=== PATIENT | male | born 1955 | race Caucasian/White ===

== ENCOUNTER 2019-12-07 23:44 | Emergency (ER) | payer MEDICARE, MEDICAID, SELFPAY ==
[2019-12-07 23:48] VITALS: BP 114/64; PULSE 87; RESP 20; TEMP 37.7; O2SAT 98; BMI 32.1
[2019-12-08 00:24] VITALS: BP 103/57; PULSE 81; RESP 20; O2SAT 96
--- NOTE | 2019-12-08 00:31 | HMH.EDFEV ---
ED Disposition Clinical Impression: UTI (urinary tract infection) Qualifiers: Urinary tract infection type: site unspecified Hematuria presence: without hematuria Qualified Code(s): N39.0 - Urinary tract infection, site not specified Disposition: Home, Self-Care Condition on Discharge: Good Instructions: DI for Urinary Tract Infection (UTI) Additional Instructions: fluids and call pcp today and use meds - Prescriptions: levoFLOXacin [Levaquin 500mg tab] 500 mg PO DAILY #7 tab Transmission Status: Pending to [facility] Referrals: Provider,Referral, [Primary Care Provider] - - Critical Care Critical Care Time: No Attestation: On 12/07/19, the high probability of a clinically significant, sudden or life threatening deterioration of the following system(s) required my full and direct attention, intervention and personal management. The time I documented below is in addition to time spent performing reported procedures but includes the following listed in this critical care notation. Medical Decision Making - Medical Records Medical records reviewed: Yes: I reviewed the patient's medical records. - Joseph Inquiry Pt receiving controlled substance: No Vital Signs: 12/07/19 23:48 12/08/19 00:24 12/08/19 01:30 Temperature 99.8 F H Temperature Source Oral Pulse Rate [Right] 87 81 83 Respiratory Rate 20 20 15 Blood Pressure [Right Arm] 114/64 103/57 L 107/61 L Blood Pressure Mean [Right Arm] 80 72 76 Blood Pressure Source [Right Arm] Automatic Cuff Automatic Cuff Blood Pressure Position [Right Arm] Sitting Sitting 02 Sat by Pulse Oximetry 98 96 97 Oxygen Delivery Method Room Air Room Air 12/08/19 02:30 12/08/19 03:30 Temperature Temperature Source Pulse Rate [Right] 85 89 Respiratory Rate 15 15 Blood Pressure [Right Arm] 111/58 L 113/66 Blood Pressure Mean [Right Arm] 75 81 Blood Pressure Source [Right Arm] Automatic Cuff Automatic Cuff Blood Pressure Position [Right Arm] Sitting Sitting 02 Sat by Pulse Oximetry 98 97 Oxygen Delivery Method Room Air Room Air - Lab Data Lab results reviewed: Yes: I reviewed the patient's lab results. Lab Results 12/08/19 00:35: WBC 7.2, RBC 3.31 L, Hgb 12.3 L, Hct 33.0 L, MCV 99.8 H, MCH 37.1 H, MCHC 37.2 H, RDW 14.1, Plt Count 180, MPV 8.3, Neut % (Auto) 85.7 H, Lymph % (Auto) 6.8 L, [place] % (Auto) 5.1, Eos % (Auto) 1.0, Baso % (Auto) 1.4, Neut # (Auto) 6.1, Lymph # (Auto) 0.5 L, [place] # (Auto) 0.4, Eos # (Auto) 0.1, Baso # (Auto) 0.1, Total Counted 100, Neutrophils % (Manual) 92 H, Lymphocytes % (Manual) 6 L, Monocytes % (Manual) 2, Platelet Estimate Normal, RBC Morphology Not Reportable, Stomatocytes 1+, ESR 84 H 12/08/19 00:35: Sodium 124 L, Potassium 3.1 L, Chloride 94 L, Carbon Dioxide 21 L, Anion Gap 12.1, BUN 16, Creatinine 1.30 H, Estimated Creat Clear 79, Estimated GFR 56 L, Est GFR ( Amer) 67, Glucose 115 H, Calcium 9.3, Total Bilirubin 4.6 H, AST 37, ALT 26, Alkaline Phosphatase 72, C-Reactive Protein 47.9 H, Total Protein 6.8, Albumin 3.5, Globulin 3.3 H, Albumin/Globulin Ratio 1.1 12/08/19 00:35: Influenza Type A Ag Negative, Influenza Type B Ag Negative, SARS-CoV-2 IgG Ab (Rapid) Negative, SARS-CoV-2 IgM Ab (Rapid) Negative 12/08/19 02:07: Urine Color Yellow, Urine Appearance Clear, Urine pH 6.0, Ur Specific [place] 1.015, Urine Protein Trace, Urine Glucose (UA) Negative, Urine Ketones Negative, Urine Blood 3+, Urine Nitrate Positive, Urine Bilirubin Negative, Urine Urobilinogen 0.2, Ur Leukocyte Esterase 2+ A, Urine RBC 10-20, Urine WBC 10-20, Urine Bacteria 2+ Result diagrams: 12/08/19 00:35 12/08/19 00:35 Orders (Tests/Meds): ED MEDICATIONS Generic Name Dose Route Start Last Admin Trade Name Freq PRN Reason Stop Dose Admin Sodium Chloride 1,000 mls @ 999 mls/hr 12/08/19 00:15 12/08/19 00:51 Sod Chlor 0.9% 1000ml Bag IV 12/08/19 01:15 999 mls/hr .Q1H1M AQUILES Administration Discontinued Medications Kiersten
[2019-12-08 00:50] LABS: Basophils # 0.1 K/mm3 (0-0.2); Basophils % 1.4 % (0.1-2.0); Eosinophils # 0.1 K/mm3 (0.0-0.4); Hemoglobin 12.3 g/dL (14.1-18.0); Lymphocytes # 0.5 K/mm3 (0.7-4.5); Lymphocytes % 6.8 % (10-50); Mean Corpuscular HGB Conc 37.2 g/dL (31.8-35.4); Mean Corpuscular Hemoglobin 37.1 pg (27.0-31.2); Mean Corpuscular Volume 99.8 fl (80-94); Mean Platelet Volume 8.3 fl (7.4-10.4); Monocytes # 0.4 K/mm3 (0.1-1.0); Monocytes % 5.1 % (1.7-9.3); Neutrophils # 6.1 K/mm3 (1.8-7.8); Neutrophils % 85.7 % (37.0-80.0); Platelet Count 180 K/mm3 (142-424); Red Blood Count 3.31 M/mm3 (4.60-6.20); Red Cell Distribution Width 14.1 % (11.5-17.5); White Blood Count 7.2 K/mm3 (4.8-10.8)
[2019-12-08 00:59] LABS: Alanine Aminotransferase 26 U/L (12-78); Albumin Level 3.5 g/dl (3.5-5.0); Albumin/Globulin Ratio 1.1 (1.1-1.8); Alkaline Phosphatase 72 U/L (38-126); Anion Gap 12.1 mEq/L (5-15); Aspartate Amino Transferase 37 U/L (17-59); Bilirubin,Total 4.6 mg/dl (0.2-1.3); Blood Urea Nitrogen 16 mg/dl (9-20); Calcium 9.3 mg/dl (8.4-10.2); Carbon Dioxide 21 mmol/L (22.0-30.0); Chloride 94 mmol/L (98-107); Creatinine Clearance Estimated 79 mL/min (50-200); Estimated Glomerular Filt Rate 56 ml/min (>60); GFR (African American) 67 ML/MIN (>60); Globulin 3.3 g/dL (1.3-3.2); Glucose 115 mg/dl (74-100); Potassium 3.1 mmoL/L (3.5-5.1); Sodium 124 mmol/L (136-145); Total Protein,Serum 6.8 g/dl (6.3-8.2)
[2019-12-08 01:00] LABS: MANUAL DIFFERENTIAL MANUAL DIFFERENTIAL (MANUAL DIFF)
[2019-12-08 01:05] LABS: C-Reactive Protein 47.9 mg/L (0-4)
[2019-12-08 01:22] LABS: Coronavirus 19 IgG Antibody Negative (Negative); Coronavirus 19 IgM Antibody Negative (Negative)
--- NOTE | 2019-12-08 01:24 | XR_ITS ---
PROCEDURE: XR CHEST 2V CLINICAL HISTORY: body aches COMPARISON: CXR CHEST(2 VIEWS-NOT PORTABLE) from 08/04/2014 CXR1 CHEST-PORTABLE from 02/04/2017 FINDINGS: Mild cardiomegaly without failure. Left hemidiaphragm is slightly elevated as before. The lungs are clear without infiltrates, suspicious nodules, or pleural effusions. Mild thoracic kyphosis not significantly changed IMPRESSION: No change with no acute finding. Mild cardiomegaly Dictated by: Isaac Kenyon MD 12/08/2019 08:39 Electronically signed by Isaac Kenyon MD in [place] 12/08/2019 08:39
[2019-12-08 01:26] LABS: Erythrocyte Sedimentation Rate 84 mm/hr (0-20)
[2019-12-08 01:29] LABS: Lymphocytes % 6 % (10-50); Monocytes % 2 % (2-9); Neutrophils % 92 % (42-76); Platelet Estimate Normal; Stomatocytes 1+; Total Cells Counted 100
[2019-12-08 01:30] VITALS: BP 107/61; PULSE 83; RESP 15; O2SAT 97
--- NOTE | 2019-12-08 01:54 | CT_ITS ---
PROCEDURE: CT ABDOMEN PELVIS WO CON CLINICAL INDICATION: abd pain Abdominal pain, difficulty urinating COMPARISON: CTAAA CTA-ABD AORTA JAXON ILEOFEM RO from 06/27/2013 TECHNIQUE: Axial images obtained with sagittal and coronal reformats. All CT scans at the facility use one or more dose reduction, viz: automated exposure control, ma/kV adjustment per patient size (including targeted exams where dose is matched to indication, i.e. head), or iterative reconstruction technique. FINDINGS: LOWER THORAX: Mild cardiomegaly. There is a prominent amount of pericardial fat. ABDOMEN & PELVIS: Prior cholecystectomy. The liver, spleen, adrenal glands, and pancreas have an unremarkable unenhanced appearance. No renal or ureteral calculi. No hydronephrosis. No intestinal obstruction or free air. There is no evidence of appendicitis or diverticulitis. Bowel gas pattern is nonspecific with nondistended fluid-filled loops of small and large bowel with a few air-fluid levels which could be seen with ileus or enterocolitis. There is a Aguilar catheter present. No pelvic mass or abnormal fluid collection is apparent. No acute bony findings. There does appear to be an old fracture of the coccyx tip. IMPRESSION: Possible enterocolitis otherwise negative Dictated by: Isaac Kenyon MD 12/08/2019 09:28 Electronically signed by Isaac Kenyon MD in [place] 12/08/2019 09:28
[2019-12-08 02:21] LABS: Microscopic, Urine URINE MICROSCOPIC (MICROSCOPIC)
[2019-12-08 02:28] LABS: Appearance,Urine CLEAR (Clear); Bilirubin,Urine Negative (Negative); Blood, Urine 3+ (Negative); Color,Urine YELLOW (Yellow); Glucose,Urine (UA) Negative (Negative); Ketones,Urine Negative (Negative); Leukocyte Esterase,Urine 2+ (Negative); Nitrate,Urine POSITIVE (Negative); Protein,Urine TRACE (Negative); Specific Gravity, Urine 1.015 (1.005-1.030); Urobilinogen,Urine 0.2 EU/dl (0.2)
[2019-12-08 02:30] VITALS: BP 111/58; PULSE 85; RESP 15; O2SAT 98
[2019-12-08 02:39] LABS: Bacteria,Urine 2+ /lpf
[2019-12-08 03:30] VITALS: BP 113/66; PULSE 89; RESP 15; O2SAT 97
[2019-12-08 03:55] LABS: Adenovirus F 40/41, stool Not Detected (NotDetected); Astrovirus Not Detected (NotDetected); Campylobacter Not Detected (NotDetected); Clostridium Difficile A/B, PCR Not Detected (NotDetected); Cryptosporidium Not Detected (NotDetected); Cyclospora Cayetanesis Not Detected (NotDetected); Entamoeba histolytica Not Detected (NotDetected); Enteroaggregative E coli Not Detected (NotDetected); Enteropathogenic E coli Not Detected (NotDetected); Enterotoxigenic E coli Not Detected (NotDetected); Giardia lamblia Not Detected (NotDetected); Norovirus Not Detected (NotDetected); Plesimonas Shigalloides, PCR Not Detected (NotDetected); Rotavirus A Not Detected (NotDetected); Salmonella, PCR Not Detected (NotDetected); Sapovirus Not Detected (NotDetected); Shiga-like toxin E coli Not Detected (NotDetected); Shigella Enterovasive E coli Not Detected (NotDetected); Vibrio Cholerae Not Detected (NotDetected); Vibrio, PCR Not Detected (NotDetected); Yersinia Entercolitica, PCR Not Detected (NotDetected)
[2019-12-08 04:11] VITALS: BP 118/64; PULSE 88; RESP 16; TEMP 37.2; O2SAT 96
== END 2019-12-08 04:14 | disposition home or self-care (01) ==
PROVIDERS: Emergency Provider Emergency Medicine
DX: N30.00 Acute cystitis without hematuria (principal); I10 Essential (primary) hypertension; Z88.7 Allergy status to serum and vaccine; Z87.891 Personal history of nicotine dependence; R19.7 Diarrhea, unspecified
CPT/HCPCS: 71046; 74176; 80053; 81001; 85007; 85025; 85651; 86140; 86328; 87086; 87088; 87186; 87275; 87276; 87507; 96365; 96367; 96375; 99284

== ENCOUNTER 2019-12-12 14:00 | Emergency (ER) | payer MEDICARE, MEDICAID, SELFPAY ==
[2019-12-12 14:01] VITALS: BP 95/65; PULSE 91; RESP 21; O2SAT 98; BMI 31.9
--- NOTE | 2019-12-12 14:19 | HMH.EDUTC ---
[facility] Disposition Clinical Impression: Medication refill Hypertension Qualifiers: Hypertension type: essential hypertension Qualified Code(s): I10 - Essential (primary) hypertension GERD (gastroesophageal reflux disease) Qualifiers: Esophagitis presence: esophagitis presence not specified Qualified Code(s): K21.9 - Gastro-esophageal reflux disease without esophagitis Disposition: Home, Self-Care Condition on Discharge: Good Instructions: Essential Hypertension, DI for Gastroesophageal Reflux Disease (GERD) Additional Instructions: Drink plenty of fluids. Make sure that you verifiy with your pharmacist that the doses and medications that I sent in are the ones that you are already on. I have verified the information that I have, but it can be easy to switch a medication or dose when someone new is prescribing it. Let me know if there are any issues. Take the medications as directed. Follow up with your regular doctor as soon as your insurance kicks in. GO TO THE ER FOR ANY WORSENING SYMPTOMS Prescriptions: Metoprolol Tartrate [Lopressor 25mg tablet] 25 mg PO BID 30 Days #60 tab Transmission Status: Received by [facility] Losartan Potassium 100 mg PO DAILY #30 tab Transmission Status: Received by [facility] Omeprazole [Omeprazole 20mg Capsule] 20 mg PO DAILY 30 Days #30 cap Transmission Status: Received by [facility] Referrals: Kodak Rincon APRN [Primary Care Provider] - Time of Disposition: 14:35 Medical Decision Making - Medical Records Medical records reviewed: No: I reviewed the patient's medical records. - Joseph Inquiry Pt receiving controlled substance: No Vital Signs: 12/12/19 14:01 12/12/19 14:46 Temperature 98.1 F Temperature Source Oral Pulse Rate 91 H Pulse Rate [Radial] 91 H Respiratory Rate 21 21 Blood Pressure 95/65 L Blood Pressure [Right Arm] 95/65 L Blood Pressure Mean [Right Arm] 75 Blood Pressure Source Automatic Cuff Blood Pressure Source [Right Arm] Automatic Cuff Blood Pressure Position Sitting Blood Pressure Position [Right Arm] Sitting 02 Sat by Pulse Oximetry 98 Oxygen Delivery Method Room Air Room Air [facility] HPI - General Stated complaint: meds refilled Time Seen by Provider: 12/12/19 14:19 Mode of Arrival: Wheelchair Source of Information: Patient Limitations: No Limitations Description of Symptoms (Recalled from Triage Doc. by RN): medication refills HEENT Symptoms (Recalled from RN notes): No Resp Symptoms (Recalled from RN notes): No Skin Symptoms (Recalled from RN notes): No MS Symptoms (Recalled from RN notes): No Functional Status (Recalled from RN notes): wnl - History of Present Illness Provider Complaint: He states that he has a history of hypertension. He went to his pcp this morning for a visit and to get refills, but the pcp is no longer taking his insurance. He is in the process of getting this straighten out, but he is out of his medications. He denies any complaints at this time. - Related Data Home Medications Medication Instructions Recorded Confirmed Aspirin [Aspir 81] 81 mg PO DAILY 12/07/19 12/08/19 Losartan Potassium 100 mg PO DAILY 12/07/19 12/08/19 Metoprolol Tartrate [Lopressor 25 mg PO BID 12/07/19 12/07/19 25mg tablet] Omeprazole [Omeprazole 20mg Tab] 20 mg PO DAILY 12/07/19 12/07/19 Previous Rx's Medication Instructions Recorded levoFLOXacin [Levaquin 500mg 500 mg PO DAILY #7 tab 12/08/19 tab] Losartan Potassium 100 mg PO DAILY #30 tab 12/12/19 Metoprolol Tartrate [Lopressor 25 mg PO BID 30 Days #60 tab 12/12/19 25mg tablet] Omeprazole [Omeprazole 20mg 20 mg PO DAILY 30 Days #30 cap 12/12/19 Capsule] Allergies Allergy/AdvReac Type Severity Reaction Status Date / Time pneumococcal vaccine Allergy Mild Verified 03/16/18 18:51 [PNEUMOCOCCAL VACCINE] - Worker's Comp Is this a Worker's Comp case?: No [facility] History - Hepatitis A Sc
[2019-12-12 14:46] VITALS: BP 95/65; PULSE 91; RESP 21; TEMP 36.7; O2SAT 98
== END 2019-12-12 14:47 | disposition home or self-care (01) ==
PROVIDERS: Emergency Provider Nurse Practitioner Family; PCP Family Medicine
DX: Z76.0 Encounter for issue of repeat prescription (principal); I10 Essential (primary) hypertension; K21.9 Gastro-esophageal reflux disease without esophagitis; Z87.891 Personal history of nicotine dependence
CPT/HCPCS: 99201

== ENCOUNTER 2021-10-23 09:22 | Inpatient (IN) | payer MEDICARE, OTHER, SELFPAY ==
[2021-10-23] VITALS (14 sets, daily range): BP systolic 100–125; BP diastolic 62–94; PULSE 75–104; RESP 15–17; TEMP 36.4–36.8; O2SAT 92–100; BMI 30.4; BMI 31.0
[2021-10-23 09:29] LABS: Chloride 95 mmol/L (98-107); Potassium 3.6 mmoL/L (3.5-5.1); Sodium 124 mmol/L (136-145)
[2021-10-23 09:30] LABS: Basophils % 0.5 % (0.1-2.0); Eosinophils # 0.1 K/mm3 (0.0-0.4); Eosinophils % 1.4 % (0.1-12.0); Hematocrit 35.4 % (42.0-52.0); Hemoglobin 12.3 g/dL (14.1-18.0); Lymphocytes # 0.8 K/mm3 (0.7-4.5); Lymphocytes % 10.7 % (10-50); Mean Corpuscular HGB Conc 34.8 g/dL (31.8-35.4); Mean Corpuscular Hemoglobin 36.7 pg (27.0-31.2); Mean Corpuscular Volume 105.7 fl (80-94); Mean Platelet Volume 9.5 fl (7.4-10.4); Monocytes # 0.3 K/mm3 (0.1-1.0); Monocytes % 4.2 % (1.7-9.3); Neutrophils # 5.9 K/mm3 (1.8-7.8); Neutrophils % 83.2 % (37.0-80.0); Platelet Count 202 K/mm3 (142-424); Red Blood Count 3.35 M/mm3 (4.60-6.20); Red Cell Distribution Width 13.8 % (11.5-17.5); White Blood Count 7.1 K/mm3 (4.8-10.8)
[2021-10-23 09:32] LABS: Alanine Aminotransferase 45 U/L (12-78); Albumin Level 3.6 g/dl (3.5-5.0); Albumin/Globulin Ratio 1.2 (1.1-1.8); Alkaline Phosphatase 94 U/L (38-126); Anion Gap 12.6 mEq/L (5-15); Aspartate Amino Transferase 51 U/L (17-59); Bilirubin,Total 4.1 mg/dl (0.2-1.3); Blood Urea Nitrogen 7 mg/dl (9-20); Calcium 8.3 mg/dl (8.4-10.2); Carbon Dioxide 20 mmol/L (22.0-30.0); Creatinine Clearance Estimated 94 mL/min (50-200); Estimated Glomerular Filt Rate 85 ml/min (>60); GFR (African American) 102 ML/MIN (>60); Glucose 108 mg/dl (74-100); Total Protein,Serum 6.6 g/dl (6.3-8.2)
--- NOTE | 2021-10-23 09:32 | ECG_ITS ---
APPROVED REPORT Exam: Resting ECG HR:94 bpm ECG Measurements Heart Rate 94 AXES AR 257 P 64 QRSd 94 QRS 14 QT 391 T 104 QTc 442 Conclusion SINUS RHYTHM WITH FIRST DEGREE AV BLOCK ST DEVIATION AND MODERATE T-WAVE ABNORMALITY, CONSIDER LATERAL ISCHEMIA [-0.1+ mV T-WAVE IN I/aVL/V5/V6] ABNORMAL ECG UNCONFIRMED REPORT Electronically signed by : Dontae Issa MD 10/24/2021 11:49:23
--- NOTE | 2021-10-23 09:57 | PC.NURSE ---
patient requested a blanket and too watch TV; no other needs at this time
--- NOTE | 2021-10-23 10:00 | HMH.EDGENADL ---
ED Disposition Clinical Impression: Gastroenteritis, Hyponatremia Disposition: Admitted As Inpatient Condition on Discharge: Fair - Critical Care Critical Care Time: No Attestation: On 10/23/21, the high probability of a clinically significant, sudden or life threatening deterioration of the following system(s) required my full and direct attention, intervention and personal management. The time I documented below is in addition to time spent performing reported procedures but includes the following listed in this critical care notation. Medical Decision Making - Joseph Inquiry Pt receiving controlled substance: No Vital Signs: 10/23/21 09:12 10/23/21 09:30 10/23/21 10:00 Temperature 97.6 F Temperature Source Oral Pulse Rate 99 H 89 Pulse Rate [Left Radial] 104 H Respiratory Rate 17 Blood Pressure 100/64 L 117/70 Blood Pressure [Right Arm] 112/71 Blood Pressure Mean [Right Arm] 84 02 Sat by Pulse Oximetry 100 98 100 Oxygen Delivery Method Room Air Room Air Room Air 10/23/21 10:30 10/23/21 11:00 10/23/21 11:30 Temperature Temperature Source Pulse Rate 90 99 H 94 H Pulse Rate [Left Radial] Respiratory Rate Blood Pressure 115/75 125/76 105/66 L Blood Pressure [Right Arm] Blood Pressure Mean [Right Arm] 02 Sat by Pulse Oximetry 100 99 Oxygen Delivery Method Room Air 10/23/21 12:00 10/23/21 12:30 10/23/21 13:00 Temperature Temperature Source Pulse Rate 96 H 75 96 H Pulse Rate [Left Radial] Respiratory Rate Blood Pressure 123/68 101/65 L 112/67 Blood Pressure [Right Arm] Blood Pressure Mean [Right Arm] 02 Sat by Pulse Oximetry 98 93 L 99 Oxygen Delivery Method Room Air Room Air 10/23/21 13:30 10/23/21 14:00 Temperature Temperature Source Pulse Rate 101 H 99 H Pulse Rate [Left Radial] Respiratory Rate Blood Pressure 112/68 124/69 Blood Pressure [Right Arm] Blood Pressure Mean [Right Arm] 02 Sat by Pulse Oximetry 99 92 L Oxygen Delivery Method Room Air - Lab Data Lab Results 10/23/21 09:15: WBC 7.1, RBC 3.35 L, Hgb 12.3 L, Hct 35.4 L, MCV 105.7 H, MCH 36.7 H, MCHC 34.8, RDW 13.8, Plt Count 202, MPV 9.5, Neut % (Auto) 83.2 H, Lymph % (Auto) 10.7, [place] % (Auto) 4.2, Eos % (Auto) 1.4, Baso % (Auto) 0.5, Neut # (Auto) 5.9, Lymph # (Auto) 0.8, [place] # (Auto) 0.3, Eos # (Auto) 0.1, Baso # (Auto) 0.0 10/23/21 09:15: Sodium 124 L, Potassium 3.6, Chloride 95 L, Carbon Dioxide 20 L, Anion Gap 12.6, BUN 7 L, Creatinine 0.90, Estimated Creat Clear 94, Estimated GFR 85, Est GFR ( Amer) 102, Glucose 108 H, Calcium 8.3 L, Total Bilirubin 4.1 H, AST 51, ALT 45, Alkaline Phosphatase 94, Total Protein 6.6, Albumin 3.6, Globulin 3.0, Albumin/Globulin Ratio 1.2 10/23/21 09:15: Troponin I < 0.01, Lipase 54 10/23/21 12:19: SARS-CoV-2 (PCR) Not detected, Influenza A Untype (PCR) Not detected, Influenza Type B (PCR) Not detected Result diagrams: 10/23/21 09:15 10/23/21 09:15 Orders (Tests/Meds): ED MEDICATIONS Generic Name Dose Route Start Last Admin Trade Name Freq PRN Reason Stop Dose Admin Acetaminophen 650 mg 10/23/21 12:43 Acetaminophen 325mg Tab PO 11/22/21 12:42 Q4HP PRN Fever or Mild Pain Aspirin 81 mg 10/24/21 09:00 Aspirin Ec 81mg Tablet PO 11/23/21 08:59 DAILY AQUILES Lactated Ringer's 1,000 mls @ 100 mls/hr 10/23/21 12:45 10/23/21 14:16 Lactated Ringer's 1000 Ml Bag IV 11/22/21 12:44 100 mls/hr .Q10H AQUILES Administration Irbesartan 150 mg 10/24/21 09:00 Irbesartan 150mg Tab PO 11/23/21 08:59 DAILY AQUILES Metoprolol Tartrate 25 mg 10/23/21 21:00 Metoprolol Tartrate 25mg Tablet PO 11/22/21 20:59 BID AQUILES Ondansetron HCl 4 mg 10/23/21 12:43 Ondansetron 4mg/2ml Vial IV 11/22/21 12:42 Q8HP PRN Nausea Pantoprazole Sodium 40 mg 10/23/21 21:00 Pantoprazole 40mg Tablet PO 11/22/21 20:59 HS AQUILES Sodium Chloride 10 ml 10/23/21 12:43 So
--- NOTE | 2021-10-23 10:03 | PC.NURSE ---
ED MD at
--- NOTE | 2021-10-23 10:16 | CT_ITS ---
FINAL REPORT CLINICAL HISTORY: abdo pain, vomiting, diarrhea COMPARISON: December 08, 2019 FINDINGS: CT OF THE ABDOMEN AND PELVIS WITH CONTRAST Axial CT images of the abdomen and pelvis were obtained after the administration of oral and iv contrast. Coronal reformatted images were also obtained and reviewed.This study was performed with techniques to keep radiation doses as low as reasonably achievable (ALARA). Individualized dose reduction techniques using automated exposure control or adjustment of mA and/or kV according to the patient's size were employed. Abdomen: There is mild scarring in the lung bases. The heart is normal in size. There are several small low-attenuation foci in the liver which favor small cysts. The gallbladder is surgically absent. The spleen is unremarkable. No adrenal mass is present. The pancreas has an unremarkable appearance. There is a less than 1 cm left renal cyst. The aorta is normal in caliber. There is no free fluid or adenopathy. Pelvis: The appendix normal. There are multiple fluid-filled bowel loops. There is mild wall thickening of the duodenum. The urinary bladder is unremarkable. No inflammatory process is seen. There is no evidence of mass or adenopathy. There is no evidence of bowel obstruction. IMPRESSION: Findings most worrisome for enteritis. Reviewed, Interpreted and Dictated by Cirilo Cardoza III, MD Transcribed by Caitlyn Pereira Authenticated by Cirilo Cardoza III, MD on 10/23/2021 01:03:24 PM [facility]
[2021-10-23 10:30] LABS: Lipase 54 U/L (23-300)
--- NOTE | 2021-10-23 10:35 | PC.NURSE ---
patient to CT with paper grader by krishnaer.
[2021-10-23 10:44] LABS: Troponin I < 0.01 ng/ml (0.00-0.034)
--- NOTE | 2021-10-23 12:17 | PC.NURSE ---
notified care management of admission, spoke with gutierrez
--- NOTE | 2021-10-23 12:18 | PC.NURSE ---
Rounded on patient at this time, advised him he was going to be admitted. Pt resting in bed and no new needs at this time
[2021-10-23 12:25] LABS: Coronavirus 19, PCR Not Detected (NotDetected); Influenza A, PCR Not Detected (NotDetected); Influenza B, PCR Not Detected (NotDetected)
--- NOTE | 2021-10-23 13:18 | P.CONPHA_ITS ---
[facility] Pharm[facility] VTE Monitoring - Patient Demographics Admission date: 10/23/21 Report Date: 10/23/21 Time: 13:18 Allergies/Adverse Reactions: Patient Allergies pneumococcal vaccine [PNEUMOCOCCAL VACCINE] Allergy (Mild, Verified 03/16/18 18:51) Height: 1.73 m Weight: 90.718 kg Patient Problems: Current Active Problems Gastroenteritis (Acute) Hyponatremia (Acute) - VTE Risk Labs: VTE Related Lab Results Hgb 12.3 g/dL (14.1-18.0) L 10/23/21 09:15 Hct 35.4 % (42.0-52.0) L 10/23/21 09:15 Plt Count 202 K/mm3 (142-424) 10/23/21 09:15 BUN 7 mg/dl (9-20) L 10/23/21 09:15 Creatinine 0.90 mg/dl (0.66-1.25) 10/23/21 09:15 Estimated Creat Clear 94 mL/min (50-200) 10/23/21 09:15 - Prophylaxis VTE Prophylaxis Ordered?: Yes Types of VTE Prophylaxis: TEDS Knee High Location of Applied Device: Bilateral Lower Extremeties
--- NOTE | 2021-10-23 13:18 | HMH.PHAINT ---
MEDICATION RECONCILIATION COMPLETED ON PATIENT USING EXTERNAL FILL HISTORY FROM PHARMACY. -ADARSH GREWAL, MANJULAD
--- NOTE | 2021-10-23 14:38 | HMH.PHAINT ---
home medication list verified using list from outpatient pharmacy
--- NOTE | 2021-10-23 14:38 | PC.NURSE ---
Rounded on patient at this time. No new needs at this time.
--- NOTE | 2021-10-23 14:59 | PC.NURSE ---
patient to 2nd floor by wheelchair with SHAHEEN Dotson
--- NOTE | 2021-10-23 15:05 | CARE MANAGER ---
Addendum entered by Sabina Barger 10/25/21 11:24: This patient will discharge to [facility] today SNF level of care. COVID is negative and has been faxed. Addendum entered by Sabina Barger 10/24/21 14:40: This patient has been accepted to [facility] for tomorrow. Patient will require an additional COVID swab prior to discharge. Addendum entered by Katelynn Lerma RN 10/24/21 11:27: Spoke with patient and siblings. [facility], but understands there may not be a bed available and is ok wherever we find him a bed. Information faxed to [facility], [facility], and [facility]. [facility] in [place] does not have a bed available at this time. Addendum entered by Sabina Barger 10/24/21 10:39: Patient information has been faxed to [facility] at this time. [facility] has stated that patient does require a 3 midnight inpatient stay for SNF level of care at their facility. Original Note: Spoke with patient who states that he lives alone at the [facility] and has been unable to take care of himself the past few weeks. He is having difficulty walking and has not eaten for a while . He makes his own decisions and he prefers to stay in [place]. He is ok with [facility] or [facility]. He does use a walker to aid with ambulation but is also struggling with ambulating with the walker. Spoke with brother, Andrew, per patient's request. Andrew states the patient makes his own decisions and he is ok with his brother going wherever we can find. He states he will let his sister know what is going on as well.
--- NOTE | 2021-10-23 15:56 | HMH.HP ---
*Admission Date: 10/23/21 *Chief complaint: Weakness; nausea and vomiting and diarrhea *History of present illness: Mr. Venegas is a 66-year-old male with a history of hypertension, GERD, hyperlipidemia, peripheral vascular disease, and alcohol abuse who presented to [facility] emergency room after feeling ill for about the past 2 weeks. He states he has had abdominal pain, nausea, vomiting and diarrhea. He is unable to fully estimate how long he has been sick and how long he has not been able to eat and drink. He does admit to being able to retain some fluids. He states he has continued to void. He states he has been out of his meds for at least a week. He normally drinks a half a case to case of beer a day which she has not been able to do in the last few weeks. He does deny fever, hematochezia, melena, hematemesis. Patient also states that he has been unable to care for himself at home and would like to be admitted to the residential. He said he has had multiple falls due to his weakness. Thus he presented to the emergency room via ambulance. He was found to be afebrile, slightly tachycardic with a blood pressure running 100/60- 117/70. O2 sats were good at 100% on room air. Laboratory data showed a hemoglobin of 12.3 and hematocrit of 35.4. Sodium was low at 124 with a chloride of 95]. BUN is 7 and creatinine is 0.9. Liver functions were normal except for an elevated total bilirubin of 4.1. Lipase was 54. He did have a CT of the abdomen which revealed findings most worrisome for enteritis. He was given aspirin and Tylenol and IV fluids started at 100 an hour after liter bolus. He was also given irbesartan, metoprolol and Zofran IV. He was started on Protonix as well. At the time of this exam patient continues to feel weak. He denies chest pain and shortness of breath. He does have some abdominal discomfort. [facility] History Medical History: Reports:: Gastroesophageal Reflux Disease(GERD), Hyperlipidemia, Hypertension Denies:: Diabetes Mellitus Type 1, Diabetes Mellitus Type 2 *Have you ever received a pneumonia vaccine?: No *Have you received a flu vaccine this season?: No Comment:: Alcohol abuse Other Surgeries: Yes: Cholecystectomy - *Social History Smoking Status: Current some day smoker Tobacco Type: cigarettes # Packs/Day (cigarettes): 1 Alcohol Intake: current Alcohol Intake Frequency:: 3 or more drinks per day Substance Use Type: marijuana, opiates, painkillers *Occupational Status:: unemployed Housing: apartment Household Members: none *Travel in the last 8 weeks: None Family Hx:: Cancer, Coronary Artery Disease Review of Systems - Constitutional Reports fatigue, Denies fever(s) - Eyes Reports change in vision, Reports discharge, Reports irritation - ENT Denies ear pain, Denies headache(s), Denies sore throat - *Cardiovascular Denies chest pain, Denies shortness of breath, Denies leg swelling - *Respiratory Denies chest congestion, Denies cough, Denies shortness of breath - *Gastrointestinal Reports abdominal pain, Reports bloating, Reports change in stools, Reports loose stools, Reports incontinent of stools, Reports heartburn, Reports nausea, Reports vomiting, Denies constipation, Denies vomiting blood, Denies black, tarry stools - *Genitourinary Denies difficulty urinating - *Musculoskeletal Reports abnormal walking, Reports joint pain, Reports muscle weakness - *Neurologic Reports abnormal walking (Usually uses a walker: Has had multiple falls.), Reports frequent falls, Denies abnormal speech - Psychiatric Reports depression Meds Home Medications Medication Instructions Recorded Confirmed Type Aspirin [Aspir 81] 81 mg PO DAILY 12/07/19 10/23/21 History Losartan Potassium 100 mg PO DAILY 12/07/19 10/23/21 History Metoprolol Tartrate [Lopressor 25 mg PO BID 12/07/19 10/23/21 History 25mg tablet] Omeprazole [Omeprazole 20mg Tab] 20 mg PO DAILY 12/07/19 10/23/21 His
[2021-10-24 05:00] VITALS: BMI 31.6
[2021-10-24 05:58] VITALS: BP 102/57; PULSE 73; RESP 16; TEMP 36.9; O2SAT 98
--- NOTE | 2021-10-24 06:08 | PC.NURSE ---
Sister # Vianey Davis [phone]
[2021-10-24 06:51] LABS: Basophils % 0.7 % (0.1-2.0); Eosinophils # 0.1 K/mm3 (0.0-0.4); Eosinophils % 2.7 % (0.1-12.0); Hematocrit 27.1 % (42.0-52.0); Lymphocytes # 0.6 K/mm3 (0.7-4.5); Lymphocytes % 13.4 % (10-50); Mean Corpuscular HGB Conc 33.9 g/dL (31.8-35.4); Mean Corpuscular Hemoglobin 37.5 pg (27.0-31.2); Mean Corpuscular Volume 110.8 fl (80-94); Monocytes # 0.3 K/mm3 (0.1-1.0); Monocytes % 5.7 % (1.7-9.3); Neutrophils # 3.4 K/mm3 (1.8-7.8); Neutrophils % 77.5 % (37.0-80.0); Platelet Count 122 K/mm3 (142-424); Red Blood Count 2.45 M/mm3 (4.60-6.20); White Blood Count 4.3 K/mm3 (4.8-10.8)
[2021-10-24 07:03] LABS: Hemoglobin 9.2 g/dL (14.1-18.0)
[2021-10-24 07:47] LABS: Chloride 102 mmol/L (98-107); Potassium 3.6 mmoL/L (3.5-5.1); Sodium 125 mmol/L (136-145)
[2021-10-24 07:50] LABS: Blood Urea Nitrogen 7 mg/dl (9-20); Creatinine Clearance Estimated 99 mL/min (50-200); Estimated Glomerular Filt Rate 97 ml/min (>60); GFR (African American) 117 ML/MIN (>60)
[2021-10-24 07:51] LABS: Anion Gap 5.6 mEq/L (5-15); Calcium 7.2 mg/dl (8.4-10.2); Carbon Dioxide 21 mmol/L (22.0-30.0); Glucose 90 mg/dl (74-100)
[2021-10-24 08:00] VITALS: BP 151/81; PULSE 68; RESP 15; TEMP 36.4; O2SAT 93
--- NOTE | 2021-10-24 09:07 | HMH.PTEV ---
Physical Therapy Evaluation Rehab PT IP Evaluation Start: 10/23/21 14:43 Freq: ONCE Status: Active Protocol: Document 10/24/21 08:48 OLIVER (Rec: 10/24/21 09:06 OLIVER [id number]) Subjective/History History History Mr. Venegas is a 66-year-old male with a history of hypertension, GERD, hyperlipidemia, peripheral vascular disease, and alcohol abuse who presented to [facility] emergency room after feeling ill for about the past 2 weeks . He states he has had abdominal pain, nausea, vomiting and diarrhea. He is unable to fully estimate how long he has been sick and how long he has not been able to eat and drink. He does admit to being able to retain some fluids. He states he has continued to void. He states he has been out of his meds for at least a week. He normally drinks a half a case to case of beer a day which she has not been able to do in the last few weeks. He does deny fever, hematochezia, melena, hematemesis. Patient also states that he has been unable to care for himself at home and would like to be admitted to the skilled nursing. He said he has had multiple falls due to his weakness. copied from H&P Subjective Subjective Pt reports he is weak and needs help to move but feels better than yesterday Rehab PT IP Eval Objective Appearance Patient Behavior Cooperative,Dependent Patient Orientation Place,Name,Birthday Difficulty following instructions none Speech Pattern Appropriate Ambulation Patient Able to Ambulate Yes Ambulation Observation IP General Gait Pattern Observation Shuffling Step Ambulation Distance (feet) 3 Ambulation Assistive Device None Ambulation Ability Contact Guard/Hand Hold Balance Ability to Arise Ab
--- NOTE | 2021-10-24 09:33 | HMH.ACPN2 ---
Internal Medicine - PN: Subj *Date: 10/24/21 *Time: 09:33 Interval history: Patient states he is feeling a little bit better today. He has had no further vomiting but has had diarrhea. His abdominal pain has improved. He did not feel like eating very much this morning. He still feels weak. Exam Vital signs and Labs for Last 24 Hours: Temp Pulse Resp BP Pulse Ox 97.5 F L 68 15 151/81 H 93 L 10/24/21 08:00 10/24/21 08:00 10/24/21 08:00 10/24/21 08:00 10/24/21 08:00 Laboratory Results - last 24 hr 10/23/21 09:15: Carbon Dioxide 20 L, Anion Gap 12.6, BUN 7 L, Creatinine 0.90, Estimated Creat Clear 94, Estimated GFR 85, Est GFR ( Amer) 102, Glucose 108 H, Calcium 8.3 L, Total Bilirubin 4.1 H, AST 51, ALT 45, Alkaline Phosphatase 94, Total Protein 6.6, Albumin 3.6, Globulin 3.0, Albumin/Globulin Ratio 1.2 10/23/21 09:15: Troponin I < 0.01, Lipase 54 10/23/21 12:19: SARS-CoV-2 (PCR) Not detected, Influenza A Untype (PCR) Not detected, Influenza Type B (PCR) Not detected 10/24/21 06:40: WBC 4.3 L D, RBC 2.45 L D, Hgb 9.2 L D, Hct 27.1 L, MCV 110.8 H, MCH 37.5 H, MCHC 33.9, RDW 14.0, Plt Count 122 L D, MPV 9.0, Neut % (Auto) 77.5, Lymph % (Auto) 13.4, [place] % (Auto) 5.7, Eos % (Auto) 2.7, Baso % (Auto) 0.7, Neut # (Auto) 3.4, Lymph # (Auto) 0.6 L, [place] # (Auto) 0.3, Eos # (Auto) 0.1, Baso # (Auto) 0.0 10/24/21 06:40: Sodium 125 L, Potassium 3.6, Chloride 102, Carbon Dioxide 21 L, Anion Gap 5.6, BUN 7 L, Creatinine 0.80, Estimated Creat Clear 99, Estimated GFR 97, Est GFR ( Amer) 117, Glucose 90, Calcium 7.2 L I & O for Last 24 hours: Intake & Output 10/21/21 10/22/21 10/23/21 10/24/21 11:59 11:59 11:59 11:59 Intake Total 737 / 737 Balance 737 / 737 Weight 200 lb 208 lb 14.4 oz - Constitutional no acute distress - *Routine Respiratory Exam Present: CTA bilaterally - *Routine Cardiovascular Exam Present: RRR - *Routine Abdominal Exam Present: soft, normoactive bowel sounds, tenderness (Diffuse mild tenderness) - *Routine Extremities Exam Absent: cyanosis, clubbing, edema - *Routine Skin Exam Present: warm. Absent: rash - *Routine Neurological Exam Present: alert, oriented X3 Assessment and Plan (1) Hyponatremia Status: Acute Category: Medical Code(s): E87.1 - Hypo-osmolality and hyponatremia (2) Gastroenteritis Status: Acute Category: Medical Code(s): K52.9 - Noninfective gastroenteritis and colitis, unspecified (3) Peripheral vascular disease Status: Chronic Category: Medical Code(s): I73.9 - Peripheral vascular disease, unspecified (4) Debility Status: Chronic Category: Medical Code(s): R53.81 - Other malaise (5) GERD (gastroesophageal reflux disease) Status: Chronic Qualifiers: Esophagitis presence: esophagitis presence not specified Qualified Code(s): K21.9 - Gastro-esophageal reflux disease without esophagitis Category: Medical Code(s): K21.9 - Gastro-esophageal reflux disease without esophagitis - Assessment and plan all Dx Assessment and Plan for all problems:: Sodium is still low today. Calcium is also low. Still awaiting a diarrhea panel. Care management is working on placement for the patient.
[2021-10-24 15:42] VITALS: BP 93/56; PULSE 65; RESP 17; TEMP 36.4; O2SAT 95
--- NOTE | 2021-10-24 18:10 | PC.NURSE ---
Pt has done fine this shift. Pt aware of need for urine sample and stool sample this shift as well as nursing staff. Speci cups placed at bedside. No BM noted this shift. Pt has remained up to chair this shift. No other acute changes or complaints, will continue to monitor.
[2021-10-24 20:35] VITALS: BP 92/59; PULSE 64; RESP 18; TEMP 36.5; O2SAT 97
[2021-10-25 05:00] VITALS: BMI 32.5
[2021-10-25 05:42] VITALS: BP 102/65; PULSE 57; RESP 16; TEMP 36.4; O2SAT 94
[2021-10-25 05:56] LABS: Microscopic, Urine URINE MICROSCOPIC (MICROSCOPIC)
[2021-10-25 06:03] LABS: Appearance,Urine CLEAR (Clear); Bilirubin,Urine Negative (Negative); Blood, Urine Negative (Negative); Color,Urine YELLOW (Yellow); Glucose,Urine (UA) Negative (Negative); Ketones,Urine Negative (Negative); Leukocyte Esterase,Urine Negative (Negative); Nitrate,Urine Negative (Negative); PH,Urine 5.5 (5.0-8.5); Protein,Urine Negative (Negative); Specific Gravity, Urine <= 1.005 (1.005-1.030); Urobilinogen,Urine 0.2 EU/dl (0.2)
[2021-10-25 06:18] LABS: Squamous Epithelial Cell,Urine Occasional #/hpf (0-5); WBC,Urine Occasional #/hpf (0-3)
[2021-10-25 06:19] LABS: Bacteria,Urine Trace /lpf
[2021-10-25 07:55] LABS: Basophils % 0.6 % (0.1-2.0); Eosinophils # 0.1 K/mm3 (0.0-0.4); Eosinophils % 1.6 % (0.1-12.0); Hematocrit 25.6 % (42.0-52.0); Hemoglobin 8.9 g/dL (14.1-18.0); Lymphocytes # 0.6 K/mm3 (0.7-4.5); Lymphocytes % 18.6 % (10-50); Mean Corpuscular HGB Conc 34.7 g/dL (31.8-35.4); Mean Corpuscular Hemoglobin 36.9 pg (27.0-31.2); Mean Corpuscular Volume 106.6 fl (80-94); Mean Platelet Volume 9.6 fl (7.4-10.4); Monocytes # 0.2 K/mm3 (0.1-1.0); Monocytes % 5.1 % (1.7-9.3); Neutrophils # 2.3 K/mm3 (1.8-7.8); Neutrophils % 74.1 % (37.0-80.0); Platelet Count 134 K/mm3 (142-424); Red Cell Distribution Width 13.8 % (11.5-17.5); White Blood Count 3.1 K/mm3 (4.8-10.8)
[2021-10-25 07:56] LABS: Chloride 102 mmol/L (98-107); Potassium 4.5 mmoL/L (3.5-5.1); Sodium 126 mmol/L (136-145)
[2021-10-25 07:59] LABS: Alanine Aminotransferase 26 U/L (12-78); Albumin Level 2.4 g/dl (3.5-5.0); Alkaline Phosphatase 67 U/L (38-126); Anion Gap 6.5 mEq/L (5-15); Aspartate Amino Transferase 43 U/L (17-59); Bilirubin,Total 2.8 mg/dl (0.2-1.3); Blood Urea Nitrogen 6 mg/dl (9-20); Calcium 7.5 mg/dl (8.4-10.2); Carbon Dioxide 22 mmol/L (22.0-30.0); Creatinine Clearance Estimated 101 mL/min (50-200); Estimated Glomerular Filt Rate 75 ml/min (>60); GFR (African American) 91 ML/MIN (>60); Globulin 2.4 g/dL (1.3-3.2); Glucose 93 mg/dl (74-100); Magnesium 1.1 mg/dl (1.6-2.3); Total Protein,Serum 4.8 g/dl (6.3-8.2)
[2021-10-25 08:00] VITALS: BP 114/63; PULSE 63; RESP 15; TEMP 36.9; O2SAT 98
[2021-10-25 08:31] LABS: Thyroid Stimulating Hormone 2.73 uIU/mL (0.465-4.68)
--- NOTE | 2021-10-25 08:32 | HMH.ACPN2 ---
<Thea Mojica - Last Filed: 10/25/21 08:32> Internal Medicine - PN: Subj *Date: 10/25/21 *Time: 08:32 Interval history: Patient states he is feeling better this morning. He has not vomited and his diarrhea has slowed. He was able to tolerate some food. He slept off and on throughout the night. His abdominal pain is improved. Exam Vital signs and Labs for Last 24 Hours: Temp Pulse Resp BP Pulse Ox 97.5 F L 57 L 16 102/65 L 94 L 10/25/21 05:42 10/25/21 05:42 10/25/21 05:42 10/25/21 05:42 10/25/21 05:42 Laboratory Results - last 24 hr 10/25/21 05:47: Urine Color Yellow, Urine Appearance Clear, Urine pH 5.5, Ur Specific [place] <= 1.005, Urine Protein Negative, Urine Glucose (UA) Negative, Urine Ketones Negative, Urine Blood Negative, Urine Nitrate Negative, Urine Bilirubin Negative, Urine Urobilinogen 0.2, Ur Leukocyte Esterase Negative, Urine WBC Occasional, Ur Squamous Epith Cells Occasional, Urine Bacteria Trace 10/25/21 07:10: WBC 3.1 L D, RBC 2.40 L, Hgb 8.9 L, Hct 25.6 L, MCV 106.6 H, MCH 36.9 H, MCHC 34.7, RDW 13.8, Plt Count 134 L, MPV 9.6, Neut % (Auto) 74.1, Lymph % (Auto) 18.6, [place] % (Auto) 5.1, Eos % (Auto) 1.6, Baso % (Auto) 0.6, Neut # (Auto) 2.3, Lymph # (Auto) 0.6 L, [place] # (Auto) 0.2, Eos # (Auto) 0.1, Baso # (Auto) 0.0 10/25/21 07:10: Sodium 126 L, Potassium 4.5 D, Chloride 102, Carbon Dioxide 22, Anion Gap 6.5, BUN 6 L, Creatinine 1.00 D, Estimated Creat Clear 101, Estimated GFR 75, Est GFR ( Amer) 91 D, Glucose 93, Calcium 7.5 L, Magnesium 1.1 L, Total Bilirubin 2.8 H, AST 43, ALT 26 D, Alkaline Phosphatase 67, Total Protein 4.8 L D, Albumin 2.4 L, Globulin 2.4, Albumin/Globulin Ratio 1.0 L, TSH 2.73 I & O for Last 24 hours: Intake & Output 10/22/21 10/23/21 10/24/21 10/25/21 11:59 11:59 11:59 11:59 Intake Total 737 / 737 3542 / 3542 Output Total 200 / 200 Balance 737 / 737 3342 / 3342 Weight 200 lb 208 lb 14.4 oz 214 lb 9.6 oz - Constitutional no acute distress - *Routine Respiratory Exam Present: CTA bilaterally - *Routine Cardiovascular Exam Present: RRR - *Routine Abdominal Exam Present: soft, normoactive bowel sounds, distended. Absent: tenderness - *Routine Extremities Exam Absent: cyanosis, clubbing, edema - *Routine Skin Exam Present: warm. Absent: rash - *Routine Neurological Exam Present: alert, oriented X3 Assessment and Plan (1) Hyponatremia Status: Acute Category: Medical Code(s): E87.1 - Hypo-osmolality and hyponatremia (2) Gastroenteritis Status: Acute Category: Medical Code(s): K52.9 - Noninfective gastroenteritis and colitis, unspecified (3) Peripheral vascular disease Status: Chronic Category: Medical Code(s): I73.9 - Peripheral vascular disease, unspecified (4) Debility Status: Chronic Category: Medical Code(s): R53.81 - Other malaise (5) GERD (gastroesophageal reflux disease) Status: Chronic Qualifiers: Esophagitis presence: esophagitis presence not specified Qualified Code(s): K21.9 - Gastro-esophageal reflux disease without esophagitis Category: Medical Code(s): K21.9 - Gastro-esophageal reflux disease without esophagitis - Assessment and plan all Dx Assessment and Plan for all problems:: Sodium is slowly improving. Bilirubin is decreasing. Patient clinically is feeling better. He does have a bed at [place]. Will discuss disposition with Dr. Masters. <Juan Diego Masters - Last Filed: 10/28/21 23:03> Internal Medicine - PN: Subj *Date: 10/28/21 *Time: 23:01 Exam Vital signs and Labs for Last 24 Hours: Temp Pulse Resp BP Pulse Ox 98.4 F 63 15 114/63 98 10/25/21 08:00 10/25/21 08:00 10/25/21 08:00 10/25/21 08:00 10/25/21 08:00 Assessment and Plan (1) Hyponatremia Status: Acute Category: Medical Code(s): E87.1 - Hypo-osmolality and hyponatremia (2) Gastroenteritis Status: Acute Category: Medical Code(s): K52.9 - Nonin
[2021-10-25 08:54] LABS: Coronavirus 19, PCR Not Detected (NotDetected); Influenza A, PCR Not Detected (NotDetected); Influenza B, PCR Not Detected (NotDetected)
[2021-10-25 09:38] VITALS: BMI 32.5
[2021-10-25 10:06] LABS: Vitamin B12 220 pg/mL (239-931)
[2021-10-25 10:26] LABS: Folate 5.64 ng/mL
--- NOTE | 2021-10-25 10:27 | HMH.DCSUM ---
General - General Admission date:: 10/23/21 <Juan Diego Masters - 10/28/21 22:56> 10/23/21 <Thea Mojica - 10/25/21 10:32> Discharge date: 10/25/21 <Thea Mojica - 10/25/21 10:32> HPI HPI: Mr. Venegas is a 66-year-old male with a history of hypertension, GERD, hyperlipidemia, peripheral vascular disease, and alcohol abuse who presented to [facility] emergency room after feeling ill for about the past 2 weeks. He states he has had abdominal pain, nausea, vomiting and diarrhea. He is unable to fully estimate how long he has been sick and how long he has not been able to eat and drink. He does admit to being able to retain some fluids. He states he has continued to void. He states he has been out of his meds for at least a week. He normally drinks a half a case to case of beer a day which she has not been able to do in the last few weeks. He does deny fever, hematochezia, melena, hematemesis. Patient also states that he has been unable to care for himself at home and would like to be admitted to the long term. He said he has had multiple falls due to his weakness. Thus he presented to the emergency room via ambulance. He was found to be afebrile, slightly tachycardic with a blood pressure running 100/60- 117/70. O2 sats were good at 100% on room air. Laboratory data showed a hemoglobin of 12.3 and hematocrit of 35.4. Sodium was low at 124 with a chloride of 95]. BUN is 7 and creatinine is 0.9. Liver functions were normal except for an elevated total bilirubin of 4.1. Lipase was 54. He did have a CT of the abdomen which revealed findings most worrisome for enteritis. He was given aspirin and Tylenol and IV fluids started at 100 an hour after liter bolus. He was also given irbesartan, metoprolol and Zofran IV. He was started on Protonix as well. At the time of this exam patient continues to feel weak. He denies chest pain and shortness of breath. He does have some abdominal discomfort. <Thea Mojica - 10/25/21 10:32> Hospital Course Hospital Course: The patient was admitted and started on IV fluids, antiemetics, and a PPI. He had a PT consult along with a care management consult for placement. A podiatry consult was also ordered. Physical therapy felt he would benefit from skilled therapy while at [facility] and, after discharge, he would benefit from short-term rehab. The patient's vomiting and diarrhea resolved and his abdominal pain improved. He was able to tolerate some food. His sodium improved slightly. His bilirubin decreased. A bed was found him at [facility] and he will be discharged for rehab. <Thea Mojica - 10/25/21 10:32> Objective Vital signs: Temp Pulse Resp BP Pulse Ox 98.4 F 63 15 114/63 98 10/25/21 08:00 10/25/21 08:00 10/25/21 08:00 10/25/21 08:00 10/25/21 08:00 <Juan Diego Masters - 10/28/21 22:56> Temp Pulse Resp BP Pulse Ox 98.4 F 63 15 114/63 98 10/25/21 08:00 10/25/21 08:00 10/25/21 08:00 10/25/21 08:00 10/25/21 08:00 <Thea Mojica - 10/25/21 10:32> Results Labs on day of discharge: Labs from last 24 hours 10/25/21 10/25/21 10/25/21 08:48 07:10 07:10 WBC 3.1 L D RBC 2.40 L Hgb 8.9 L Hct 25.6 L MCV 106.6 H MCH 36.9 H MCHC 34.7 RDW 13.8 Plt Count 134 L MPV 9.6 Neut % (Auto) 74.1 Lymph % (Auto) 18.6 [place] % (Auto) 5.1 Eos % (Auto) 1.6 Baso % (Auto) 0.6 Neut # (Auto) 2.3 Lymph # (Auto) 0.6 L [place] # (Auto) 0.2 Eos # (Auto) 0.1 Baso # (Auto) 0.0 Sodium 126 L Potassium 4.5 D Chloride 102 Carbon Dioxide 22 Anion Gap 6.5 BUN 6 L Creatinine 1.00 D Estimated Creat Clear 101 Estimated GFR 75 Est GFR ( Amer) 91 D Glucose 93 Calcium 7.5 L Magnesium 1.1 L Total Bilirubin 2.8 H AST 43 ALT 26 D Alkaline Phosphatase 67 Total Protein 4.8 L D
--- NOTE | 2021-10-25 11:00 | PC.NURSE ---
Report given to Viola Lew at [facility], pt notified to call brother for transport
[2021-10-25 11:56] LABS: 25-OH Vitamin D, Total < 12.8 ng/mL (30-100)
--- NOTE | 2021-10-28 15:14 | CARE MANAGER ---
Contacted nurse at [facility] who states the patient is doing very well. he is one person assist to bathroom and taking meds as prescribed. Denies any needs or concerns at this time. SHARA Fernandez
[2021-11-14 08:17] LABS: Vitamin B1 43.2 nmol/L (66.5-200.0)
== END 2021-10-25 12:05 | DRG 641 ==
LOC: ER 12:18 → 2ND 12:56
PROVIDERS: Nurse Practitioner Family; Admitting Provider Family Medicine; Emergency Provider Emergency Medicine; PCP Family Medicine; Visit Provider Family Medicine
DX: E87.1 Hypo-osmolality and hyponatremia (principal); K52.9 Noninfective gastroenteritis and colitis, unspecified; I73.9 Peripheral vascular disease, unspecified; Z20.822 Contact with and (suspected) exposure to COVID-19; I10 Essential (primary) hypertension; K21.9 Gastro-esophageal reflux disease without esophagitis; E78.5 Hyperlipidemia, unspecified; F17.200 Nicotine dependence, unspecified, uncomplicated
CPT/HCPCS: 36415; 74177; 80048; 80053; 81001; 82306; 82607; 82746; 83690; 83735; 84425; 84443; 84484; 85025; 93005; 96375; 97116; 97162; 97530; 99285; C9803; J2405; Q9967; U0003; U0005

== ENCOUNTER → 2021-11-09 19:21 | Outpatient (CLI) | payer MEDICARE, OTHER, SELFPAY ==
[2021-11-09 19:35] LABS: Occult Blood,Stool Negative (Negative)
== END ==
PROVIDERS: Visit Provider Family Medicine
DX: K21.9 Gastro-esophageal reflux disease without esophagitis (principal)
CPT/HCPCS: 82272; G0328

== ENCOUNTER → 2021-11-12 13:36 | Outpatient (CLI) | payer MEDICARE, OTHER, SELFPAY ==
[2021-11-12 14:18] LABS: Hematocrit 27.5 % (42.0-52.0); Hemoglobin 9.4 g/dL (14.1-18.0)
== END ==
PROVIDERS: PCP Family Medicine; Visit Provider Family Medicine
DX: D53.9 Nutritional anemia, unspecified (principal)
CPT/HCPCS: 85014; 85018

== ENCOUNTER → 2021-11-20 12:54 | Outpatient (CLI) | payer MEDICARE, OTHER, SELFPAY ==
[2021-11-20 16:32] LABS: Hematocrit 29.9 % (42.0-52.0); Hemoglobin 10.1 g/dL (14.1-18.0)
== END ==
PROVIDERS: PCP Family Medicine; Visit Provider Family Medicine
DX: D64.9 Anemia, unspecified (principal)
CPT/HCPCS: 85014; 85018

== ENCOUNTER 2024-10-21 08:25 | Outpatient (CLI) | payer MEDICARE, MEDICAID, SELFPAY ==
[2024-10-21 08:40] LABS: MANUAL DIFFERENTIAL MANUAL DIFFERENTIAL (MANUAL DIFF)
[2024-10-21 08:44] LABS: Basophils % 0.5 % (0.1-2.0); Eosinophils # 0.3 Kmm3 (0.0-0.4); Eosinophils % 3.9 % (0.1-12.0); Hematocrit 43.9 % (42.0-52.0); Hemoglobin 15.3 g/dL (14.1-18.0); Lymphocytes # 1.8 K/mm3 (0.7-4.5); Lymphocytes % 22.4 % (10-50); Mean Corpuscular HGB Conc 34.9 g/dL (31.8-35.4); Mean Corpuscular Hemoglobin 32.6 pg (27.0-31.2); Mean Corpuscular Volume 93.6 fl (80-94); Mean Platelet Volume 10.6 fl (7.4-10.4); Monocytes # 0.7 K/mm3 (0.1-1.0); Monocytes % 8.1 % (1.7-9.3); Neutrophils # 5.2 K/mm3 (1.8-7.8); Neutrophils % 64.7 % (37.0-80.0); Platelet Count 231 K/mm3 (142-424); Red Blood Count 4.69 M/mm3 (4.60-6.20); Red Cell Distribution Width 12.7 % (11.5-17.5)
[2024-10-21 08:53] LABS: Albumin Level 4.1 g/dl (3.5-5.0); Chloride 100 mmol/L (98-107); Sodium 138 mmol/L (136-145)
[2024-10-21 08:54] LABS: Potassium 4.6 mmoL/L (3.5-5.1)
[2024-10-21 08:56] LABS: Alanine Aminotransferase 21 U/L (12-78); Anion Gap 11.6 mEq/L (5-15); Aspartate Amino Transferase 29 U/L (17-59); Blood Urea Nitrogen 12 mg/dl (9-20); Carbon Dioxide 31 mmol/L (22.0-30.0); Estimated Glomerular Filt Rate 74 ml/min (>60); GFR (African American) 90 ML/MIN (>60)
[2024-10-21 08:57] LABS: Albumin/Globulin Ratio 1.2 (1.1-1.8); Alkaline Phosphatase 69 U/L (38-126); Bilirubin,Total 1.4 mg/dl (0.2-1.3); Calcium 9.4 mg/dl (8.4-10.2); Cholesterol 201 mg/dl (140-200); Globulin 3.4 g/dL (1.3-3.2); Glucose 102 mg/dl (74-100); HDL Cholesterol 39 mg/dl (40-60); Total Protein,Serum 7.5 g/dl (6.3-8.2); Triglycerides 160 mg/dl (30-150); VLDL Cholesterol 32 mg/dL (0-40)
[2024-10-21 08:58] LABS: Chol/HDL Ratio 5.2 (1-3.5)
[2024-10-21 09:09] LABS: Direct LDL Cholesterol 122.16 mg/dL (100-129)
[2024-10-21 10:12] LABS: Eosinophils % 4 % (0-3); Lymphocytes % 36 % (10-50); Monocytes % 5 % (2-9); Neutrophils % 55 % (42-76); Platelet Estimate Normal; RBC Morphology Normal; Total Cells Counted 100
[2024-10-21 10:47] LABS: Bilirubin,Indirect 1.1 mg/dL (0.0-0.9)
== END 2024-10-21 23:59 | disposition home or self-care (01) ==
PROVIDERS: PCP Family Medicine; Visit Provider Family Medicine
DX: I10 Essential (primary) hypertension (principal); E87.1 Hypo-osmolality and hyponatremia; E78.5 Hyperlipidemia, unspecified; F10.21 Alcohol dependence, in remission
CPT/HCPCS: 36415; 80053; 80061; 85007; 85014; 85018; 85048; 85049

== ENCOUNTER 2024-10-24 07:29 | Outpatient (CLI) | payer MEDICARE, MEDICAID, SELFPAY ==
[2024-10-24 07:41] LABS: Basophils % 0.5 % (0.1-2.0); Eosinophils # 0.3 Kmm3 (0.0-0.4); Eosinophils % 4.2 % (0.1-12.0); Hematocrit 42.4 % (42.0-52.0); Hemoglobin 14.8 g/dL (14.1-18.0); Lymphocytes # 1.4 K/mm3 (0.7-4.5); Lymphocytes % 22.3 % (10-50); Mean Corpuscular HGB Conc 34.9 g/dL (31.8-35.4); Mean Corpuscular Hemoglobin 32.5 pg (27.0-31.2); Mean Corpuscular Volume 93.2 fl (80-94); Mean Platelet Volume 10.1 fl (7.4-10.4); Monocytes # 0.6 K/mm3 (0.1-1.0); Monocytes % 9.3 % (1.7-9.3); Neutrophils # 4.1 K/mm3 (1.8-7.8); Neutrophils % 63.5 % (37.0-80.0); Nucleated Red Blood Cells # 0 10^3/uL; Nucleated Red Blood Cells % 0 %; Platelet Count 210 K/mm3 (142-424); Red Blood Count 4.55 M/mm3 (4.60-6.20); Red Cell Distribution Width 12.4 % (11.5-17.5); Red Cell Distribution Width-SD 42.7 fL; White Blood Count 6.5 K/mm3 (4.8-10.8)
[2024-10-24 08:26] LABS: Alanine Aminotransferase 19 U/L (12-78); Albumin Level 3.5 g/dl (3.5-5.0); Albumin/Globulin Ratio 1.2 (1.1-1.8); Alkaline Phosphatase 71 U/L (38-126); Anion Gap 13.5 mEq/L (5-15); Aspartate Amino Transferase 23 U/L (17-59); Bilirubin,Total 1.2 mg/dl (0.2-1.3); Blood Urea Nitrogen 17 mg/dl (9-20); Calcium 9.1 mg/dl (8.4-10.2); Carbon Dioxide 26 mmol/L (22.0-30.0); Chloride 102 mmol/L (98-107); Chol/HDL Ratio 5.8 (1-3.5); Cholesterol 184 mg/dl (140-200); Estimated Glomerular Filt Rate 84 ml/min (>60); GFR (African American) 102 ML/MIN (>60); Glucose 97 mg/dl (74-100); HDL Cholesterol 32 mg/dl (40-60); Potassium 4.5 mmoL/L (3.5-5.1); Sodium 137 mmol/L (136-145); Total Protein,Serum 6.5 g/dl (6.3-8.2); Triglycerides 128 mg/dl (30-150); VLDL Cholesterol 26 mg/dL (0-40)
[2024-10-24 08:37] LABS: Direct LDL Cholesterol 117.32 mg/dL (100-129)
== END 2024-10-24 23:59 | disposition home or self-care (01) ==
PROVIDERS: PCP Family Medicine; Visit Provider Family Medicine
DX: I10 Essential (primary) hypertension (principal); E78.5 Hyperlipidemia, unspecified; F39 Unspecified mood [affective] disorder
CPT/HCPCS: 36415; 80053; 80061; 85025

== ENCOUNTER 2025-03-03 07:30 | Outpatient (CLI) | payer MEDICARE, MEDICAID, SELFPAY ==
--- OUTSIDE RECORDS SUMMARY | 2025-03-03 07:32 | XMS_ITS | Clinical Summary ---
Author Organization [facility] Address [address] [place] [address] Phone Care Team Providers Care Tripe Washer Name Role Phone Unavailable Primary Care Provider Unavailabl e Allergies No known active allergies Medications * This document contains information received from the source organization and may not represent a complete record from that organization. No known medications Active Problems No known active problems Medical History Medical History Date Comments Hyperlipidemia Hypertension Heartburn Peripheral vascular disease Other specified noninfective gastroenteritis and colitis Tobacco use Alcohol dependence, in remission (HCC) Social History Tobacco Use Types Packs/Day Years Used Date Smoking Tobacco: Every Day Cigarettes Smokeless Tobacco: Never Tobacco Cessation:Ready to Q uit: No; Counseling Given: Yes Alcohol Use Standard Drinks/Week Comments Not Currently 0 (1 standard drink = 0.6 oz pur e alcohol) Sex and Gender Information Value Date Recorded Sex Assigned at Not on file Legal Sex Male 11:45 AM EST Gender Identity Not on file Sexual Orientation Not on file Obstetrics History Plan of Treatment Health Maintenance Due Date Last Done Comments Wellness Exam Medicare 02/22/1958 Hepatitis C Screening 02/22/1974 DTaP/TDaP/Td (1 - Tdap) 02/22/1975 Pneumococcal Vaccine 50+ (1 of 2 - PCV) 02/22/1975 Cologuard 02/22/2001 Colon Cancer Screening 02/22/2001 Colonoscopy 02/22/2001 FIT 02/22/2001 Sigmoidoscopy 02/22/2001 Virtual Colonography 02/22/2001 Zoster (1 of 2) 02/22/2006 AAA Screening 02/22/2021 COVID-19 Vaccine ( - 2023-2 5 season) 2024 Influenza Vaccine (#1) 2025 Hepatitis B Vaccine Aged Out No longe r eligible based on patient's age to complete this topic Meningococcal B Vaccine Aged Out No l onger eligible based on patient's age to complete this topic Insurance MEDICAID [place] [address]
[2025-03-03 12:24] LABS: Valproic Acid, (Depakene) 52.4 ug/ml (50-100)
== END 2025-03-03 23:59 | disposition home or self-care (01) ==
PROVIDERS: PCP Family Medicine; Visit Provider Family Medicine
DX: Z12.11 Encounter for screening for malignant neoplasm of colon (principal)
CPT/HCPCS: 36415; 80164

== ENCOUNTER 2025-04-14 06:02 | Outpatient (CLI) | payer MEDICARE, MEDICAID, SELFPAY ==
[2025-04-14 06:18] LABS: Hematocrit 41.8 % (42.0-52.0); Hemoglobin 15.3 g/dL (14.1-18.0); Immature Granulocytes % 0.3 %; Mean Corpuscular HGB Conc 36.6 g/dL (31.8-35.4); Mean Corpuscular Hemoglobin 34.1 pg (27.0-31.2); Mean Corpuscular Volume 93.1 fl (80-94); Nucleated Red Blood Cells % 0 %; Platelet Count 190 K/mm3 (142-424); Red Blood Count 4.49 M/mm3 (4.60-6.20); Red Cell Distribution Width-SD 41.2 fL; White Blood Count 6.6 K/mm3 (4.8-10.8)
[2025-04-14 06:56] LABS: Alanine Aminotransferase 22 U/L (12-78); Albumin Level 3.5 g/dl (3.5-5.0); Albumin/Globulin Ratio 1.3 (1.1-1.8); Alkaline Phosphatase 82 U/L (38-126); Anion Gap 12.5 mEq/L (5-15); Aspartate Amino Transferase 23 U/L (17-59); Bilirubin,Total 1.2 mg/dl (0.2-1.3); Blood Urea Nitrogen 19 mg/dl (9-20); Calcium 9.1 mg/dl (8.4-10.2); Carbon Dioxide 27 mmol/L (22.0-30.0); Chloride 102 mmol/L (98-107); Cholesterol 181 mg/dl (140-200); Creatinine,Serum 1.10 mg/dl (0.66-1.25); Estimated Glomerular Filt Rate 66 ml/min (>60); GFR (African American) 80 ML/MIN (>60); Globulin 2.6 g/dL (1.3-3.2); Glucose 63 mg/dl (74-100); HDL Cholesterol 31 mg/dl (40-60); Potassium 4.5 mmoL/L (3.5-5.1); Sodium 137 mmol/L (136-145); Total Protein,Serum 6.1 g/dl (6.3-8.2); Triglycerides 156 mg/dl (30-150)
[2025-04-14 07:06] LABS: Valproic Acid, (Depakene) 51.9 ug/ml (50-100)
[2025-04-14 07:39] LABS: Iron 98 ug/dL (49-181)
[2025-04-14 08:15] LABS: Ferritin 660 ng/ml (17.9-464)
[2025-04-14 08:32] LABS: Vitamin B12 > 1000 pg/mL (239-931)
[2025-04-14 09:06] LABS: Total Iron Binding Capacity 218 ug/dL (261-462)
[2025-04-14 11:34] LABS: Folate > 20.00 ng/mL
== END 2025-04-14 23:59 | disposition home or self-care (01) ==
PROVIDERS: PCP Family Medicine; Visit Provider Family Medicine
DX: D64.9 Anemia, unspecified (principal); I10 Essential (primary) hypertension
CPT/HCPCS: 36415; 80053; 80061; 80164; 82607; 82728; 82746; 83540; 83550; 85025

== ENCOUNTER 2025-05-10 08:39 | Outpatient (CLI) | payer MEDICARE, MEDICAID, SELFPAY ==
[2025-05-10 08:41] LABS: Coronavirus 19, PCR Not Detected (NotDetected); Influenza A, PCR Not Detected (NotDetected); Influenza B, PCR Not Detected (NotDetected)
--- OUTSIDE RECORDS SUMMARY | 2025-05-10 08:44 | XMS_ITS | Clinical Summary ---
Author Organization [facility] Address [address] [place] [address] Phone Care Team Providers Care Motel Clerk Name Role Phone Unavailable Primary Care Provider [...] on file Sexual Orientation Not on file Plan of Treatment Health Maintenance Due Date Last Done Comments Wellness Exam Medicare 02/22/1958 Hepatitis C Screening 02/22/1974 DTaP/TDaP/Td (1 - Tdap) 02/22/1975 Pneumococcal Vaccine 50+ (1 of 2 - PCV) 02/22/1975 Cologuard 02/22/2001 Colon Cancer Screening 02/22/2001 Colonoscopy 02/22/2001 FIT 02/22/2001 Sigmoidoscopy 02/22/2001 Virtual Colonography 02/22/2001 Zoster (1 of 2) 02/22/2006 AAA Screening 02/22/2021 COVID-19 Vaccine ( - 2024-2 6 season) 2025 Influenza Vaccine (#1) 2025 Hepatitis B Vaccine Aged Out No longe r eligible based on patient's age to complete this topic Meningococcal B Vaccine Aged Out No l onger eligible based on patient's age to complete this topic Insurance [place]ICAID [place] PART A AND B
--- OUTSIDE RECORDS SUMMARY | 2025-05-10 08:44 | XMS_ITS | Patient Health Record ---
[facility] Address [address] [place] [id number] Care Team Providers Care Order Control Clerk [employer] Name Role Phone Emiliana Simon Primary Care Provider Yayo Masters [phone] Allergies Allergen (clinical drug ingredient) Drug/Non Drug Allergy documented on EMR Reaction Allergy Type Onset Date Status lisinopril Lisinopril cough Drug Allergy Activ e Pneumococcal Vac Polyvalent hives Drug Allergy Active Medications Medication SIG (Take, Route, Frequency, Duration) Notes Start Date End Date Status Folic Acid 1 MG 1 tab(s) orally once a day Active Losartan Potassium 50 MG 1 tab(s) orally once a day Active Artificial Tears 1 % in each eye1 gtt Ophthalmic bid Active Potassium Chloride ER 20 MEQ 1 tab(s) or ally 2 times a day Active Thiamine HCl 100 MG 5 tab(s) orally once a day Active Metoprolol Tartrate 25 MG 1/2 tab(s) ora lly 2 times a day Active Acid Gone 95-358 MG/15ML 30 mL orally 2 times a day prn Active Senna S 8.6-50 MG 2 tab(s) orally once a day (at bedtime) Active Acetaminophen 500 MG 1 tab(s) orally josé miguel ry 4 hours prn Active MiraLax - as directed ORALLY O NCE A DAY Active REGULAR DIET Active B-12 1000 MCG 1 tab(s) orally once a day Active Acetaminophen 500 MG 2 tablets bid and q 6h prn Active Omeprazole 20 MG 1 cap(s) once a day Active Ondansetron HCl 4 MG 1 tab(s) orally josé miguel ry 6 hours prn Active Magnesium 400MG 1 TABLET BID A ctive DNR Active Melatonin 10 MG 1 capsule at bedtime as needed Orally Once a day at HS Active Ferrous Sulfate 325 (65 Fe) MG 1 tab(s) orally once a day Active Aspirin 81 81MG DIRECTED ONCE A DAY Active Multivitamin Adult (Minerals) - 1 tab(s) orally once a day Active Immunizations Vaccine Route Administration Date Status Comme nts fGrwrlhf-cihmbegtx-tcwqqqk e pts. IM Intramuscular 05/05/2011 Administered nHyphjuq-kerbbdsqv-wxfytlh e pts. IM Intramuscular 05/18/2012 Administered xFluzone (6mos and older)-trivalent IM Intramuscular 05/24/2010 Administered xFluzone (6mos and older)-trivalent IM Intramuscular 05/13/2013 Administered xFlu shot-36 months and older IM Intramuscular 05/09/2006 Administered xFlu shot-36 months and older IM Intramuscular 05/05/2007 Administered xFlu shot-36 months and older IM Intramuscular 05/15/2009 Administered Tetanus Tdap-Adacel (over 7yrs) Unknown 02/03/2017 Administered PNEUMOVAX 23 VACCINE IM Intramuscular 05/05/2011 Administe red Fluzone Quad-Medicare (6months&older) IM Intramuscular 03/23/2018 Administered Problems Problem Type SNOMED Code ICD Code Onset Dates Problem Status W/U Status Risk Notes Problem Insomnia (336992770) Insomnia (G47.00) Active confirmed Problem Hypertension (09800366) HTN (hypertension) (I10) Active confirmed Problem Constipation (86814609) Constipation (K59.00) Active confirmed Problem Dry eyes (080361028) Dry eyes (H04.129) Active confirmed Problem Peripheral vascular disease (478223026) PVD (peripheral vascular disease) (I73.9) Active confirmed Problem 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 (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) Active confirmed Problem Hyperlipidemia (26911146) Hyperlipidemia, unspecified (E78.5) Active confirmed Problem Gastroesophageal reflux disease without esophagitis (503089321) Gastroesophageal reflux disease without esophagitis (K21.9) Active confirmed Problem Ethanol abuse (75392868) ETOH abuse (F10.10) Active confirmed Problem Peripheral vascular disease (591403014) PAD (peripheral artery disease) (I73.9) Active confirmed Problem Obese class II (707209878386854) BMI 39.0-39.9,adult (Z68.39) Active confirmed Problem Urge incontinence of urine (67509410) Urge incontinence of urine (N39.41) Active confirmed Problem Gastroesophageal reflux disease (871456302) Gastroesophageal reflux disease, unspecified whether esophagitis present (K21.9) Active confirmed Problem Osteoarthritis (667152892) Osteoarthritis involving multiple joints on both sides of body (M15.9) Active confirmed Plan Of Treatment Pending Test Test Name Order Date Hemoccult- IFOBT (in house) 07/24/2020 Insurance Providers Payer Name Payer Address Payer Phone Subscriber Number Group Number Insured Name Patient Relationship to Insured Coverage Start Date Coverage End Date MEDICARE PART B [address] [address] [place] [address] [phone] [id number] ELDER SARGENT Self - patient is the insured [facility] [address] [place], [place] [id number] ELDER SARGENT Self - patient is the insured Medical (General) History Medical History History ICD Code HBP GERD HLP PVD ETOH abuse Anemia Surgical History Surgery Date(Month/Year) 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
== END 2025-05-10 23:59 | disposition home or self-care (01) ==
PROVIDERS: PCP Family Medicine; Visit Provider Family Medicine
DX: J06.9 Acute upper respiratory infection, unspecified (principal)
CPT/HCPCS: 87631